=== PATIENT | female | born 1955 | race Caucasian/White ===

== ENCOUNTER 2016-05-22 11:07 | Day surgery (SDC) | payer OTHER ==
[~2016-05-22] VITALS: Ht 152.4 cm; Wt 81.8 kg
[~2016-05-22 11:07] MED LIST: 0.9% Sodium Chloride 1,000 ML IV SCH; ALLERCLEAR PO; ASPI-973 PO; GUAI600T2 PO; LEVO25TA5 PO; MELA1TAB25 SL; METO25TA6 PO; PSYL0.4C PO; Sodium Chloride LOK Flush 10 mL Syringe IV PRN; THYR90TA PO; fentaNYL-PF 50 mCg/mL 2 mL Inj IVPUSH PRN
[2016-05-22 12:43] VITALS: BP 134/87; PULSE 67; RESP 15; O2SAT 99
[2016-05-22 13:37] VITALS: BP 107/69; PULSE 65; RESP 14; O2SAT 94
--- NOTE | 2016-05-22 13:37 | PCM.ENDCOL ---
Colonoscopy Date of Service: May 22, 2016 Physician Feliciano Ohara MD Pre Procedure Diagnosis: Screening personal history of colon polyp Post Procedure Dx & Findings: Polyp hemorrhoids diverticulitis Procedure Colonoscopy Prep adequate Withdrawal 10 minutes PROCEDURE IN DETAIL: After unremarkable rectal examination, Olympus videocolonoscope was inserted patient's anal canal and was advanced to cecum. Landmarks were identified including the ileocecal valve and appendiceal orifice. Scope was withdrawn systematically. In the sigmoid colon several medium diverticuli noted. Patient has isolated diverticuli up to the ascending colon. The sigmoid colon there was a 2 mm polyp which was removed completely using cold snare. In the rectum retroflexion was done which showed hemorrhoids and anal canal was inspected carefully on the way out and hemorrhoids noted. The mucosa of the cecum, ascending, transverse, descending, sigmoid, rectal mucosa lined with whitish, pink, smooth, glistening, normal-appearing mucosa, normal fine branching, underlying vascularity, normal haustra. The patient tolerated procedure and was transported to observation area. Impression Polyp 1 status post complete removal Hemorrhoids Diverticuli Personal history of colon polyp Recommendation Repeat colonoscopy 5 years Diverticular diet Presedation Assessment Risks and Benefits Informed consent was obtained from the patient after all risks and benefits including but not limited to drug reaction, infection, pain, bleeding, perforation, as well as alternatives were discussed. Patient monitoring Continuous pulse oximetry, cardiac monitoring, blood pressure monitoring, IV access, and oxygen at 2L per nasal cannula. Periprocedural Fentanyl: Fentanyl 75mcg Incrementally Midazolam: Midazolam 4mg Incrementally Complications There were no periprocedural complications identified. Post Procedure Plan Post Procedure Recommendations 1. Restrict activities today. 2. Resume normal activities in the morning. 3. Resume medications. 4. Patient informed of normal post procedure side effects as bloating, drowsiness, blood streaking in the stool. 5. average risk CRCS. If colon polyps come back as: -Hyperplastic- can repeat colonoscopy in 10 years -Tubular adenoma- repeat colonoscopy in 5 years -Tubulovillous/villous adenoma- repeat colonoscopy in 3 years -If any dysplasia- return to clinic as soon as possible 6. Please don't hesitate to call me with any questions. Feliciano Ohara MD May 22, 2016 13:37
[2016-05-22 13:47] VITALS: BP 102/71; PULSE 76; RESP 16; O2SAT 99
--- NOTE | 2016-05-24 13:54 | PATH ---
SURGICAL PATHOLOGY Attending Physician:Feliciano Ohara M.D. CASE STATUS: Signed Out PATIENT NAME: RADHA PEREZ PID: [id number] : 1955 DATE COLLECTED:05/22/2016 00:00 SPECIMEN: Colon, Biopsy CLINICAL HISTORY: 1).SIGMOID COLON POLYP FINAL DIAGNOSIS: 1.SIGMOID COLON POLYP: TUBULAR ADENOMA. ICD10 CODE D12.5 GROSS DESCRIPTION: The specimen is received in one formalin filled container labeled with the patient's name, sublabeled "sigmoid polyp" and consists of a 0.2 x 0.2 x 0.2 CM portion of tissue which is entirely submitted in one cassette. 05/23/2016 DAC MICRO DESCRIPTION: See diagnosis. ICD-9 CODES: CPT CODES: 1: 08802 Electronically Signed Out Romelia Nelson MD [facility] Pathology [facility], [place] [address] Technical component performed at [facility], [address] [place] [address] Ave[address], [place], [address]
== END 2016-05-22 23:59 | disposition home or self-care (01) ==
LOC: END 11:07
PROVIDERS: ATTEND Internal Medicine
DX: Z12.11 Encounter for screening for malignant neoplasm of colon (principal); Z83.71 Family history of colonic polyps; D12.5 Benign neoplasm of sigmoid colon; K57.30 Diverticulosis of large intestine without perforation or abscess without bleeding; K64.9 Unspecified hemorrhoids
CPT/HCPCS: 45385; G0500; J2250; J3010; J7030